=== PATIENT | female | born 1940 | race African-American/Black ===

== ENCOUNTER → 2016-12-30 | Outpatient (CLI) | payer MEDICARE ==
--- NOTE | 2016-12-30 13:09 | RADIOLOGY REPORT (SQ) ---
EXAM DESCRIPTION: CTA CHEST COMPLETED DATE/TIME: 12/30/2016 12:55 pm REASON FOR STUDY: PLEURISY R09.1 PLEURISY COMPARISON: CT chest 12/27/2007 TECHNIQUE: CT scan of the chest performed using helical scanning technique with dynamic intravenous contrast injection. Images reviewed with lung, soft tissue and bone windows. Reconstructed coronal and sagittal MPR images reviewed. Additional 3 dimensional post-processing performed to develop Maximal Intensity Projection images (IL P). All images stored on PACS. All CT scanners at this facility use dose modulation, iterative reconstruction, and/or weight based d osing when appropriate to reduce radiation dose to as low as reasonably achievable (ALARA). [facility]: Dose Right [facility]: CareDose [facility]: Dose Right [facility]: Teradose 4D [facility]: EnterMedia CONTRAST TYPE AND DOSE: contrast/concentration: Isovue 370.00 mg/ml; Total Contrast Delivered: 74.0 ml; Total Saline Delivered: 110.0 ml RENAL FUNCTION: Creatinine 0.9 RADIATION DOSE: Up-to-date CT equipment and radiation dose reduction techniques were employed. CTDIv ol: 9.4 - 15.5 mGy. DLP: 562 mGy-cm. . LIMITATIONS: None. FINDINGS: LUNGS AND PLEURA: No masses, infiltrates, pneumothorax. No pleural effusions, calcificati ons. AORTA AND GREAT VESSELS: No aneurysm or dissection. HEART: No pericardial effusion. PULMONARY ARTERIES: No emboli visualized in the main pulmonary arteries or the segmental branches. HILAR AND MEDIASTINAL STRUCTURES: No identified masses or abnormal nodes. HARDWARE: None in the chest. UPPER ABDOMEN: No significant findings. Limited exam. THYROID AND OTHER SOFT TISSUES: No masses. No adenopathy. BONES: No acute or significant finding. 3D MIPS: Confirm above findings. OTHER: No other significant finding. IMPRESSION: NORMAL CTA OF THE CHEST. NO PULMONARY EMBOLI. TECHNICAL DOCUMENTATION: JOB ID: [id number] Quality ID # [id number]: Final reports with documentation of one or more dose reduction techniques (e.g., Au tomated exposure control, adjustment of the mA and/or kV according to patient size, use of iterative reconstruction technique) 2010 [employer]- All Rights Reserved
== END ==
LOC: RAD 11:42
PROVIDERS: ATTEND Internal Medicine
DX: R09.1 Pleurisy (principal)
CPT/HCPCS: 71275; 82565

== ENCOUNTER → 2017-08-12 | Outpatient (CLI) | payer MEDICARE ==
--- NOTE | 2017-08-13 08:04 | WOMENS IMAGING REPORT ---
EXAM DESCRIPTION: 3D SCREENING MAMMO BILAT COMPLETED DATE/TIME: 08/12/2017 1:18 pm REASON FOR STUDY: ROUTINE SCREENING; Z12.31 Z12.31 ENCNTR SCREEN MAMMOGRAM FOR MALIGNANT NEOPLASM O F KAUSHAL COMPARISON: Multiple since 2009 TECHNIQUE: Standard craniocaudal and mediolateral oblique views of each breast recorded using digita l acquisition and breast tomosynthesis. LIMITATIONS: None. FINDINGS: No masses, calcifications or architectural distortion. No areas of suspicion. Read with the assistance of CAD. .[facility] - R2 Cenova Version 1.3 .[facility] - R2 Cenova Version 1.3 .[facility] - R2 Cenova Version 2.4 .[facility] [place] - R2 Cenova Version 2.4 .[facility] - R2 [employer] Upholsterer Version 9.2 IMPRESSION: NORMAL MAMMOGRAM. BIRADS 1. BREAST DENSITY: a. The breasts are almost entirely fatty. BIRAD: 1 NEGATIVE RECOMMENDATION: ROUTINE SCREENING Continue yearly bilateral screening tomosynthesis in August 2018 COMMENT: The patient has been notified of the results by letter per SA requirements. Additional no tification policies are in place for contacting patient with suspicious or incomplete findings. Quality ID #225: The [employer] recommends an annual screening mammogram for women aged 40 years or over. This facility utilizes a reminder system to ensure that all patients receive reminder letters, and/or direct phone calls for appointments. This includes reminders for routine scr eening mammograms, diagnostic mammograms, or other Breast Imaging Interventions when appropriate. Th is patient will be placed in the appropriate reminder system. The [employer] (ACR) has developed recommendations for screening MRI of the breast s in certain patient populations, to be used in conjunction with mammography. Breast MRI surveillanc e may be appropriate for women with more than 20% lifetime risk of developing breast cancer as deter mined by genetic testing, significant family history of the disease, or history of mantle radiation f or Hodgkins Disease. ACR Practice Guidelines 2008. DBT Technology DBT is a type of tomographic mammography. With conventional mammography, overlapping breast tissue ma y make lesions difficult to detect, even with good compression. DBT uses an x-ray tube that rotates a round the breast, taking images at different angles. These images are then combined to create thin sl ices of the breast that the radiologist can view as a 3D reconstruction. The W[employer] unit can perform full-field digital mammograms (2D imaging); or DBT (3D imaging); or both, in a combination mode that quickly performs both the mammogram and the tomosynthesis scan while the breast is still compressed. PQRS 6045F: Fluoroscopic imaging is not utilized for breast tomosynthesis. TECHNICAL DOCUMENTATION: FINDING NUMBER: (1) ASSESSMENT: (1) JOB ID: [id number] [employer]- All Rights Reserved
== END ==
LOC: WI 13:00
PROVIDERS: ATTEND Internal Medicine
DX: Z12.31 Encounter for screening mammogram for malignant neoplasm of breast (principal)
CPT/HCPCS: 77063; 77067

== ENCOUNTER → 2018-03-09 | Outpatient (CLI) | payer MEDICARE ==
--- NOTE | 2018-03-09 08:32 | RADIOLOGY REPORT (SQ) ---
EXAM DESCRIPTION: FOOT LEFT 2 VIEWS COMPLETED DATE/TIME: 03/09/2018 8:14 am REASON FOR STUDY: LEFT FOOT PAIN COMPARISON: None. NUMBER OF VIEWS: Two views. TECHNIQUE: AP and lateral without weight bearing radiographic images acquired of the left foot. LIMITATIONS: None. FINDINGS: MINERALIZATION: Normal. BONES: No acute fracture or dislocation. No worrisome bone lesions. No significant osteophytes. JOINTS: No erosions. No africa-articular osteopenia. No chondrocalcinosis. SOFT TISSUES: No swelling. No calcifications. OTHER: No other significant finding. IMPRESSION: NEGATIVE STUDY OF THE LEFT FOOT. NO EXPLANATION FOR PAIN. TECHNICAL DOCUMENTATION: JOB ID: [id number] [employer]- All Rights Reserved Reading location - IP/workstation name: [email or web address]
== END ==
LOC: RAD 07:56
PROVIDERS: ATTEND Internal Medicine
DX: M79.675 Pain in left toe(s) (principal)

== ENCOUNTER → 2018-05-25 | Outpatient (CLI) | payer MEDICARE ==
--- NOTE | 2018-05-25 12:07 | RADIOLOGY REPORT (SQ) ---
EXAM DESCRIPTION: KNEE LEFT 2 VIEWS COMPLETED DATE/TIME: 05/25/2018 11:04 am REASON FOR STUDY: PAIN IN LT KNEE M25.562 PAIN IN LEFT KNEE twisted COMPARISON: 07/08/2010 NUMBER OF VIEWS: Two views. TECHNIQUE: AP and lateral radiographic images acquired of the left knee. LIMITATIONS: None. FINDINGS: MINERALIZATION: Normal. BONES: No acute fracture. Diffuse degenerative changes in 3 compartments. JOINT: No effusion. Chondrocalcinosis. SOFT TISSUES: No soft tissue swelling. No radio-opaque foreign body. OTHER: No other significant finding. IMPRESSION: Osteoarthritis. No acute fracture. TECHNICAL DOCUMENTATION: JOB ID: [id number] [employer]- All Rights Reserved Reading location - IP/workstation name: [email or web address]
== END ==
LOC: OD 09:41
PROVIDERS: ATTEND Internal Medicine
DX: M25.562 Pain in left knee (principal)

== ENCOUNTER → 2019-06-20 | Outpatient (CLI) | payer MEDICARE ==
--- NOTE | 2019-06-20 10:43 | WOMENS IMAGING REPORT ---
EXAM DESCRIPTION: 3D SCREENING MAMMO BILAT COMPLETED DATE/TIME: 06/20/2019 8:17 am REASON FOR STUDY: Z12.31 SCREENING MAMMO Z12.31 ENCNTR SCREEN MAMMOGRAM FOR MALIGNANT NEOPLASM OF B RE COMPARISON: [id number] EXAM PARAMETERS: Standard craniocaudal and mediolateral oblique views of each breast recorded using digital acquisition and breast tomosynthesis. Read with the assistance of CAD. .[facility] - [email or web address] Side Gluer Version 9.2 LIMITATIONS: None. FINDINGS: Findings present which are benign by mammographic criteria. No suspicious masses, calcific ations or architectural distortion. Pertinent benign findings: Right intramammary lymph node. Benign mammographic findings may include one or more of the following: Smooth masses, popcorn/rim/coa rse calcifications, asymmetries, post-procedure changes, and lesions with long-standing stability. IMPRESSION: BENIGN MAMMOGRAPHIC FINDINGS. BIRADS 2 BREAST DENSITY: b. There are scattered areas of fibroglandular density. BIRAD: ASSESSMENT: 2 BENIGN FINDING(S) RECOMMENDATION: ROUTINE SCREENING COMMENT: The patient has been notified of the results by letter per SA requirements. Additional no tification policies are in place for contacting patient with suspicious or incomplete findings. Quality ID #225: The [employer] recommends an annual screening mammogram for women aged 40 years or over. This facility utilizes a reminder system to ensure that all patients receive reminder letters, and/or direct phone calls for appointments. This includes reminders for routine scr eening mammograms, diagnostic mammograms, or other Breast Imaging Interventions when appropriate. Th is patient will be placed in the appropriate reminder system. TECHNICAL DOCUMENTATION: FINDING NUMBER: (1) ASSESSMENT: (1) JOB ID: [id number] 1961 [employer]- All Rights Reserved Reading location - IP/workstation name: [email or web address]
== END ==
LOC: WI 07:50
PROVIDERS: ATTEND Internal Medicine
DX: Z12.31 Encounter for screening mammogram for malignant neoplasm of breast (principal)
CPT/HCPCS: 77063; 77067

== ENCOUNTER 2019-08-17 13:45 | Inpatient (IN) | payer MEDICARE ==
--- NOTE | 2019-08-17 14:49 | ER Document Report ---
ED Medical Screen (RME) - General Chief Complaint: Rib Pain Stated Complaint: RIGHT RIB PAIN, BACK PAIN Time Seen by Provider: 08/17/19 14:42 Primary Care Provider: VALDEMAR RODRIGUEZ MD [Primary Care Provider] - Follow up as needed Notes: Patient is a 79-year-old female with a history of type 2 diabetes, hypertension who presents emergency department with a chief complaint of right-sided chest pain and right flank pain. Patient reports that she had an outpatient CTA of her chest this morning and was told that if it was positive for a pulmonary embolus that she should come to the emergency department. She reports this was ordered by her primary care physician Dr. Rodriguez. Patient reports that her symptoms really did start this morning which included right chest wall pain and right flank pain. Patient reports is worse when she attempts to take a deep breath. Patient denies use of blood thinners currently. Patient denies a history of blood clot. TRAVEL OUTSIDE OF THE [place] IN LAST 30 DAYS: No - Related Data Allergies/Adverse Reactions: Penicillins Allergy (Verified 08/17/19 14:46) Past Medical History - Past Medical History Cardiac Medical History: Reports: Hx Hypercholesterolemia, Hx Hypertension Endocrine Medical History: Reports: Hx Diabetes Mellitus Type 2 Past Surgical History: Reports: Hx Hysterectomy, Hx Orthopedic Surgery - R shoulder; c6-c7 surgery - Immunizations Hx Diphtheria, Pertussis, Tetanus Vaccination: Yes Physical Exam - Vital signs Vitals: Temp Pulse Resp BP Pulse Ox 99.6 F 83 16 126/56 H 97 08/17/19 13:53 08/17/19 13:53 08/17/19 13:53 08/17/19 13:53 08/17/19 13:53 - Respiratory Respiratory status: No respiratory distress Chest status: Nontender Breath sounds: Normal Chest palpation: Normal Course - Re-evaluation Re-evalutation: 08/17/19 14:47 Patient CTA results reveal a pulmonary embolus in the right upper and lower lobe. We will initiate blood work to include coagulation studies, cardiac monitoring and EKG. Patient in triage and currently in no acute distress. Patient's oxygen level is 98% on room air. Patient is not tachycardic or hypotensive. I have greeted and performed a rapid initial assessment of this patient. A comprehensive ED assessment and evaluation of the patient, analysis of test results and completion of the medical decision making process will be conducted by additional ED providers. - Vital Signs Vital signs: Temp Pulse Resp BP Pulse Ox 99.6 F 83 16 126/56 H 97 08/17/19 13:53 08/17/19 13:53 08/17/19 13:53 08/17/19 13:53 08/17/19 13:53 Doctor's Discharge - Discharge Referrals: VALDEMAR RODRIGUEZ MD [Primary Care Provider] - Follow up as needed
[2019-08-17 16:42] LABS: ABSOLUTE BASOPHILS # (AUTO) 0.1 10^3/uL (0.0-0.2); ABSOLUTE LYMPHOCYTES (AUTO) 2.7 10^3/uL (0.5-4.7); ABSOLUTE MONOCYTES (AUTO) 0.7 10^3/uL (0.1-1.4); ABSOLUTE NEUT (AUTO) 7.9 10^3/uL (1.7-8.2); BASOPHILS % (AUTO) 0.5 % (0-2); EOSINOPHILS % (AUTO) 0.3 % (0-6); HEMATOCRIT 39.9 % (36.0-47.0); HEMOGLOBIN 13.2 g/dL (12.0-15.5); LYMPHOCYTES % (AUTO) 23.7 % (13-45); MEAN CORPUSCULAR HEMOGLOBIN 29.8 pg (27.0-33.4); MEAN CORPUSCULAR VOLUME 90 fl (80-97); MONOCYTES % (AUTO) 6.2 % (3-13); PLATELET COUNT 348 10^3/uL (150-450); RED BLOOD COUNT 4.42 10^6/uL (3.72-5.28); RED CELL DISTRIBUTION WIDTH 13.9 % (11.5-14.0); SEGMENTED NEUTROPHILS % (AUTO) 69.3 % (42-78); TOTAL CELLS COUNTED % (AUTO) 100 %; WHITE BLOOD COUNT 11.4 10^3/uL (4.0-10.5)
[2019-08-17] MEDS ORDERED: HEPARIN SOD (PORCINE) 1,000 UNIT/ML 10 ML VIAL IV ONE (18:10)
--- NOTE | 2019-08-17 18:33 | ER Document Report ---
ED Respiratory Problem - General Chief Complaint: Breathing Difficulty Stated Complaint: RIGHT RIB PAIN, BACK PAIN Time Seen by Provider: 08/17/19 14:42 Notes: Patient is a pleasant 79-year-old female who comes in complaining of right-sided chest pain. Patient states that she was told to come to the emergency department based on her CTA results. Patient saw her primary care doctor who sent her for CTA of her chest as the patient was complaining of increased dyspnea on exertion and right-sided pain, concerning for pleurisy. Patient stat es that the pain is worse when she is walking around or breathing faster. It is especially bad when she is yawning. Denies any history of heart failure or COPD. No chest pain at rest currently. Denies fever or cough. No other symptoms at this time TRAVEL OUTSIDE OF THE [place] IN LAST 30 DAYS: No - HPI Patient complains to provider of: Hurts to breath Onset: Last week Duration: Worse/persistent Quality of pain: Achy, Dull Severity: Mild Pain Level: 1 - Related Data Allergies/Adverse Reactions: Penicillins Allergy (Verified 08/17/19 14:46) Past Medical History - Social History Smoking Status: Never Smoker Chew tobacco use (# tins/day): No Frequency of alcohol use: None Drug Abuse: None Family History: Reviewed & Not Pertinent Patient has suicidal ideation: No Patient has homicidal ideation: No - Past Medical History Cardiac Medical History: Reports: Hx Hypercholesterolemia, Hx Hypertension Endocrine Medical History: Reports: Hx Diabetes Mellitus Type 2 Past Surgical History: Reports: Hx Hysterectomy, Hx Orthopedic Surgery - R shoulder; c6-c7 surgery - Immunizations Hx Diphtheria, Pertussis, Tetanus Vaccination: Yes Hx Pneumococcal Vaccination: 05/03/14 Review of Systems - Review of Systems -: Yes All other systems reviewed and negative Physical Exam - Vital signs Vitals: Temp Pulse Resp BP Pulse Ox 99.6 F 83 16 126/56 H 97 08/17/19 13:53 08/17/19 13:53 08/17/19 13:53 08/17/19 13:53 08/17/19 13:53 Interpretation: Normal - General General appearance: Appears well, Alert - HEENT Head: Normocephalic, Atraumatic Eyes: Normal Pupils: PERRL - Respiratory Respiratory status: No respiratory distress Chest status: Nontender Breath sounds: Normal Chest palpation: Normal - Cardiovascular Rhythm: Regular Heart sounds: Normal auscultation Murmur: No - Abdominal Inspection: Normal Distension: No distension Bowel sounds: Normal Tenderness: Nontender Organomegaly: No organomegaly - Back Back: Normal, Nontender - Extremities General upper extremity: Normal inspection, Nontender, Normal color, Normal ROM, Normal temperature General lower extremity: Normal inspection, Nontender, Normal color, Normal ROM, Normal temperature, Normal weight bearing. No: Ovi's sign - Neurological Neuro grossly intact: Yes Cognition: Normal Orientation: AAOx4 [place] Coma Scale Eye Opening: Spontaneous [place] Coma Scale Verbal: Oriented [place] Coma Scale Motor: Obeys Commands [place] Coma Scale Total: 15 Speech: Normal Motor strength normal: LUE, RUE, LLE, RLE Sensory: Normal - Psychological Associated symptoms: Normal affect, Normal mood - Skin Skin Temperature: Warm Skin Moisture: Dry Skin Color: Normal Course - Re-evaluation Re-evalutation: 08/17/19 18:30 Patient discussed with her primary care doctor who would like her started on a heparin drip and admitted to the [facility]. Patient denies any history of bleeding. No dark tarry or bloody stools. No nausea or vomiting. When patient sits up her oxygen saturation drops to 93%. She becomes more dyspneic. - Vital Signs Vital signs: Temp Pulse Resp BP Pulse Ox 99.6 F 83 19 134/78 H 98 08/17/19 13:53 08/17/19 13:53 08/17/19 18:15 08/17/19 18:15 08/17/19 18:15 - Laboratory Result Diagrams: 08/17/19 16:14 08/17/19 19:25 Laboratory results interpreted by me: 08/17/19 16:14 WBC 11.4 H - Diagnostic Test Radiology reviewed: Reports reviewed - EKG Interpretation by Ks EKG shows normal: Sinus rhythm Rate: Normal Rhythm: NSR When compared to previous EKG there are: Other - no ST changes Discharge - Discharge Clinical Impression: Pulmonary embolism on right Disposition: ADMITTED INPATIENT Admitting Provider: [facility] Unit Admitted: [facility]
--- NOTE | 2019-08-17 19:34 | EKG REPORT ---
SEVERITY:- ABNORMAL ECG - SINUS RHYTHM LEFT VENTRICULAR HYPERTROPHY NONSPECIFIC T ABNORMALITIES, INFERIOR LEADS : Confirmed by: Vania De Souza MD 17-Aug-2019 19:34:37
[2019-08-17] MEDS: HEPARIN SODIUM,PORCINE/D5W 25,000 UNIT/250 ML RTUINJ IV PRN (19:35)
[2019-08-17 19:56] LABS: INTERNATIONAL RATION (INR) 1.02; PROTHROMBIN TIME 13.4 SEC (11.4-15.4)
[2019-08-17 19:57] LABS: PARTIAL THROMBOPLASTIN TIME 29.4 SEC (23.5-35.8)
[2019-08-17 20:11] LABS: ALKALINE PHOSPHATASE 127 U/L (38-126); ANION GAP 11 (5-19); ASPARTATE AMINO TRANSFERASE 17 U/L (14-36); BILIRUBIN,DIRECT 0.4 mg/dL (0.0-0.4); BLOOD UREA NITROGEN 14 mg/dL (7-20); CALCIUM 11.2 mg/dL (8.4-10.2); CARBON DIOXIDE 28 mmol/L (22-30); CHLORIDE 100 mmol/L (98-107); GLUCOSE 102 mg/dL (75-110); TOTAL PROTEIN 7.9 g/dL (6.3-8.2)
[2019-08-17] MEDS ORDERED: ZOLPIDEM TARTRATE 5 MG TABLET PO PRN (20:21)
[2019-08-17] MEDS ORDERED: DEXTROSE 50%-WATER 25 GM/50 ML DISP.SYRIN IV PRN ×2 (20:28)
[2019-08-17] MEDS ORDERED: DEXTROSE 40% GEL 15 GM TUBE PO PRN ×2 (20:28)
[2019-08-17] MEDS ORDERED: GLUCAGON,HUMAN RECOMB 1 MG INJ IM PRN (20:28)
[2019-08-17] MEDS ORDERED: (PENDING PHARMACY ID) (Losartan/Hydrochlorothiazide [Hyzaar 50-12.5 Tablet] 1 EACH) PO SCH (20:30)
[2019-08-17] MEDS ORDERED: OLMESARTAN MEDOXOMIL 40 MG PO SCH (20:30)
--- NOTE | 2019-08-17 20:35 | PDOC H&P ---
History of Present Illness Admission Date/PCP: 08/17/19 18:51 VALDEMAR RODRIGUEZ MD History of Present Illness: DUANE ALANIS is a 79 year old female, She has a history of type 2 diabetes mellitus, she came to the office today as a walk-in patient for evaluation of right-sided chest pain, the chest pain is pleuritic in nature aggravated by movement, reproducible on palpation of the chest wall. The chest pain is of 1 day duration, I was particularly concerned about the nature of the chest pain and the acuity of the pain and I suspected pulmonary embolism, I requested for outpatient CT angiogram of the chest, this demonstrated pulmonary embolism involving the right lung. Unfortunately there was no bed available for patient to be admitted directly to the hospital, she was redirected to the emergency room now she been admitted to [facility] bed for management. Past Medical History Cardiac Medical History: Reports: Hyperlipidema, Hypertension Endocrine Medical History: Reports: Diabetes Mellitus Type 2 Musculoskeltal Medical History: Reports: Arthritis Past Surgical History Past Surgical History: Reports: Hysterectomy, Orthopedic Surgery - R shoulder; c6-c7 surgery Social History Smoking Status: Never Smoker Electronic Cigarette use?: No Family History Family History: Reviewed & Not Pertinent Parental Family History Reviewed: Yes Children Family History Reviewed: Yes Sibling(s) Family History Reviewed.: Yes Medication/Allergy Home Medications: Metformin HCl [Glucophage] 500 mg PO DAILY 05/05/14 Olmesartan Medoxomil 40 mg PO DAILY 08/17/19 Aspirin [Ecotrin 81 mg EC Tablet] 81 mg PO DAILY 08/18/19 Hydrochlorothiazide [Hydrodiuril 25 mg Tablet] 25 mg PO QAM 08/18/19 Pravastatin Sodium 10 mg PO DAILY 08/18/19 Allergies/Adverse Reactions: Penicillins Allergy (Verified 08/17/19 14:46) Review of Systems Constitutional: ABSENT: chills, fever(s), headache(s), weight gain, weight loss Eyes: ABSENT: visual disturbances Ears: ABSENT: hearing changes Cardiovascular: PRESENT: chest pain, dyspnea on exertion. ABSENT: edema, orthropnea, palpitations Respiratory: PRESENT: dyspnea. ABSENT: cough, hemoptysis Gastrointestinal: ABSENT: abdominal pain, constipation, diarrhea, hematemesis, hematochezia, nausea, vomiting Genitourinary: ABSENT: dysuria, hematuria Musculoskeletal: ABSENT: joint swelling Integumentary: ABSENT: rash, wounds Neurological: ABSENT: abnormal gait, abnormal speech, confusion, dizziness, foc al weakness, syncope Psychiatric: ABSENT: anxiety, depression, homidical ideation, suicidal ideation Endocrine: ABSENT: cold intolerance, heat intolerance, menstrual abnormalities, polydipsia, polyuria Hematologic/Lymphatic: ABSENT: easy bleeding, easy bruising, lymphadenopathy Physical Exam Vital Signs: Temp Pulse Resp BP Pulse Ox 99.6 F 83 19 134/78 H 98 08/17/19 13:53 08/17/19 13:53 08/17/19 18:15 08/17/19 18:15 08/17/19 18:15 Intake & Output 08/16/19 08/17/19 08/18/19 06:59 06:59 06:59 Weight 100.6 kg General appearance: PRESENT: no acute distress, well-developed, well-nourished Head exam: PRESENT: atraumatic, normocephalic Eye exam: PRESENT: conjunctiva pink, EOMI, PERRLA. ABSENT: scleral icterus Ear exam: PRESENT: normal external ear exam Mouth exam: PRESENT: moist, tongue midline Neck exam: PRESENT: full ROM Respiratory exam: PRESENT: clear to auscultation eufemia Cardiovascular exam: PRESENT: RRR, +S1, +S2 Pulses: PRESENT: normal dorsalis pedis pul, +2 pedal pulses bilateral Vascular exam: PRESENT: normal capillary refill GI/Abdominal exam: PRESENT: normal bowel sounds, soft Rectal exam: PRESENT: deferred Neurological exam: PRESENT: alert, CN II-XII grossly intact Psychiatric exam: PRESENT: appropriate affect, normal mood Skin exam: PRESENT: dry, intact, warm. ABSENT: cyanosis, rash Results Laboratory Results: 08/17/19 16:14 08/17/19 19:25 08/17/19 08/17/19 16:14 19:25 WBC 11.4 H RBC 4.42 Hgb 13.2 Hct 39.9 MCV 90 MCH 29.8 MCHC 33.0 RDW 13.9 Plt Count 348 Seg Neutrophils % 69.3 Sodium 138.7 Potassium 4.0 Chloride 100 Carbon Dioxide 28 Anion Gap 11 BUN 14 Creatinine 0.91 Est GFR ( Amer) > 60 Glucose 102 Calcium 11.2 H Total Bilirubin 1.0 AST 17 Alkaline Phosphatase 127 H Total Protein 7.9 Albumin 4.0 08/17/19 19:25 Troponin I < 0.012 Assessment & Plan - Diagnosis (1) Pulmonary embolism on right Is this a current diagnosis for this admission?: Yes Plan: She has unprovoked pulmonary embolism she will need a lifelong coagulation, because of the burden of the blood clots she will be admitted into the hospital for IV heparin therapy for 3 days and subsequently transition to p.o. Eliquis. Venous Doppler of the legs to be ordered (2) T2DM (type 2 diabetes mellitus) Qualifiers: Diabetes mellitus nursing home insulin use: without nursing home use Diabetes mellitus complication status: without complication Qualified Code(s): E11.9 - Type 2 diabetes mellitus without complications Is this a current diagnosis for this admission?: Yes
[2019-08-17] MEDS ORDERED: LOSARTAN POTASSIUM 50 MG TABLET PO SCH (21:00)
[2019-08-17 22:02] LABS: ABSOLUTE BASOPHILS # (AUTO) 0.1 10^3/uL (0.0-0.2); ABSOLUTE EOSINOPHILS # (AUTO) 0.1 10^3/uL (0.0-0.6); ABSOLUTE LYMPHOCYTES (AUTO) 4.1 10^3/uL (0.5-4.7); ABSOLUTE MONOCYTES (AUTO) 0.8 10^3/uL (0.1-1.4); ABSOLUTE NEUT (AUTO) 6.2 10^3/uL (1.7-8.2); BASOPHILS % (AUTO) 0.8 % (0-2); EOSINOPHILS % (AUTO) 0.5 % (0-6); HEMATOCRIT 36.1 % (36.0-47.0); HEMOGLOBIN 12.1 g/dL (12.0-15.5); LYMPHOCYTES % (AUTO) 36.8 % (13-45); MEAN CORPUSCULAR HEMOGLOBIN 29.9 pg (27.0-33.4); MEAN CORPUSCULAR HGB CONC 33.5 g/dL (32.0-36.0); MEAN CORPUSCULAR VOLUME 89 fl (80-97); PLATELET COUNT 318 10^3/uL (150-450); RED BLOOD COUNT 4.05 10^6/uL (3.72-5.28); RED CELL DISTRIBUTION WIDTH 13.6 % (11.5-14.0); SEGMENTED NEUTROPHILS % (AUTO) 54.9 % (42-78); TOTAL CELLS COUNTED % (AUTO) 100 %; WHITE BLOOD COUNT 11.3 10^3/uL (4.0-10.5)
[2019-08-17 22:12] LABS: AMYLASE 49 U/L (30-110); ANION GAP 11 (5-19); BLOOD UREA NITROGEN 14 mg/dL (7-20); CALCIUM 11.2 mg/dL (8.4-10.2); CARBON DIOXIDE 29 mmol/L (22-30); CHLORIDE 99 mmol/L (98-107); GLUCOSE 108 mg/dL (75-110); PHOSPHORUS 3.4 mg/dL (2.5-4.5); POTASSIUM 3.8 mmol/L (3.6-5.0)
[2019-08-17 22:17] LABS: CREATINE KINASE MB 0.25 ng/mL (<4.55)
[2019-08-17 22:21] LABS: TROPONIN I < 0.012 ng/mL
[2019-08-17 22:29] LABS: FREE T4 (FREE THYROXINE) 1.24 ng/dL (0.78-2.19)
[2019-08-17] MEDS: LOSARTAN POTASSIUM 50 MG TABLET PO SCH (22:33)
[2019-08-17] MEDS: METFORMIN HCL 500 MG TABLET PO SCH (22:33)
[2019-08-17] MEDS: INSULIN LISPRO 100 UNIT/ML 3 ML VIAL SUBCUT SCH (22:35)
[2019-08-17 22:43] LABS: THYROID STIMULATING HORMONE 1.36 uIU/mL (0.47-4.68)
[2019-08-17] MEDS: HYDROCHLOROTHIAZIDE 12.5 MG TABLET PO SCH (22:43)
[2019-08-17 23:25] LABS: INTERNATIONAL RATION (INR) 1.15; PROTHROMBIN TIME 14.8 SEC (11.4-15.4)
[2019-08-18 00:06] LABS: PARTIAL THROMBOPLASTIN TIME > 235.0 SEC (23.5-35.8)
[2019-08-18 01:01] LABS: APPEARANCE,URINE CLEAR; BILIRUBIN,URINE NEGATIVE (NEGATIVE); COLOR,URINE YELLOW; GLUCOSE, URINE NEGATIVE (NEGATIVE); KETONES,URINE TRACE mg/dL (NEGATIVE); LEUKOCYTE ESTERASE,URINE NEGATIVE (NEGATIVE); NITRITE,URINE NEGATIVE (NEGATIVE); PROTEIN,URINE NEGATIVE (NEGATIVE); URINE SPECIFIC GRAVITY 1.035
[2019-08-18 01:45] LABS: URINE AMPHETAMINES SCREEN NEGATIVE; URINE BARBITURATES SCREEN NEGATIVE; URINE BENZODIAZEPINES SCREEN NEGATIVE; URINE COCAINE SCREEN NEGATIVE; URINE MARIJUANA (THC) SCREEN NEGATIVE; URINE METHADONE SCREEN NEGATIVE; URINE PHENCYCLIDINE SCREEN NEGATIVE
[2019-08-18 03:11] LABS: HEMATOCRIT 34.8 % (36.0-47.0); HEMOGLOBIN 11.9 g/dL (12.0-15.5); MEAN CORPUSCULAR HEMOGLOBIN 30.3 pg (27.0-33.4); MEAN CORPUSCULAR HGB CONC 34.2 g/dL (32.0-36.0); MEAN CORPUSCULAR VOLUME 89 fl (80-97); PLATELET COUNT 281 10^3/uL (150-450); RED BLOOD COUNT 3.93 10^6/uL (3.72-5.28); RED CELL DISTRIBUTION WIDTH 13.5 % (11.5-14.0); WHITE BLOOD COUNT 9.8 10^3/uL (4.0-10.5)
[2019-08-18 03:28] LABS: ALBUMIN 3.9 g/dL (3.5-5.0); ALKALINE PHOSPHATASE 120 U/L (38-126); ASPARTATE AMINO TRANSFERASE 18 U/L (14-36); BILIRUBIN,DIRECT 0.2 mg/dL (0.0-0.4); TOTAL PROTEIN 7.6 g/dL (6.3-8.2); TRIGLYCERIDES 102 mg/dL (<150)
[2019-08-18 03:40] LABS: CREATINE KINASE MB 0.26 ng/mL (<4.55); DIRECT LDL 67 mg/dL (<100); TROPONIN I < 0.012 ng/mL
[2019-08-18] MEDS ORDERED: NORMAL SALINE 1000 ML 1,000 ML IV ONE (06:35)
[2019-08-18 09:23] LABS: CREATINE KINASE MB 0.27 ng/mL (<4.55)
[2019-08-18 09:28] LABS: TROPONIN I < 0.012 ng/mL
[2019-08-18] MEDS: INSULIN LISPRO 100 UNIT/ML 3 ML VIAL SUBCUT SCH ×4 (09:43→21:51)
[2019-08-18] MEDS ORDERED: HYDROCHLOROTHIAZIDE 25 MG TABLET PO SCH (10:00)
[2019-08-18] MEDS: METFORMIN HCL 500 MG TABLET PO SCH (10:37)
[2019-08-18] MEDS: LOSARTAN POTASSIUM 50 MG TABLET PO SCH (10:42)
[2019-08-18] MEDS: HYDROCHLOROTHIAZIDE 12.5 MG TABLET PO SCH (10:42)
--- NOTE | 2019-08-18 12:05 | XCELERA REPORT ---
[address] [facility] [address] Lower Extremity Venous Evaluation Procedure: Color flow and duplex imaging bilaterally of the veins of the lower extremities as well as the Common Femoral veins. Right Sided Venous Evaluation Normal vessel filling wall to wall, compression and augmentation as well as Colour flow down to the infrageniculate veins. Left Sided Venous Evaluation Normal vessel filling wall to wall, compression and augmentation as well as Colour flow down to the infrageniculate veins. Interpretation Summary No duplex evidence of DVT or obstruction in the bilateral lower extremities. Name: DUANE ALANIS Age: 79 yrs Gender: Female : 1940 Patient Status: Inpatient Patient Location: [place] [id number]^A Study Date: 08/17/2019 09:03 PM Reason For Study: PE Ordering Physician: VALDEMAR RODRIGUEZ Performed By: Shruthi Jacobson : VALDEMAR RODRIGUEZ > Juan Carlos Spear
[2019-08-18] MEDS: HEPARIN SODIUM,PORCINE/D5W 25,000 UNIT/250 ML RTUINJ IV PRN (16:13)
[2019-08-18 16:45] LABS: APPEARANCE,URINE SLIGHTLY-CLOUDY; BILIRUBIN,URINE NEGATIVE (NEGATIVE); COLOR,URINE YELLOW; GLUCOSE, URINE NEGATIVE (NEGATIVE); KETONES,URINE NEGATIVE (NEGATIVE); LEUKOCYTE ESTERASE,URINE MODERATE (NEGATIVE); NITRITE,URINE NEGATIVE (NEGATIVE); PROTEIN,URINE NEGATIVE (NEGATIVE); URINE SPECIFIC GRAVITY 1.015
--- NOTE | 2019-08-18 20:23 | PDOC PROGRESS REPORT ---
Subjective Progress Note for:: 08/18/19 Subjective:: Patient was admitted yesterday when she presented with unprovoked pulmonary embolism. She was seen by the bedside with family in the room, I explained the diagnosis and the plan of care to the patient and to her family with her consent. The blood pressure is somewhat low there is no sign or evidence of any blood loss ,intravenous normal saline was started Reason For Visit: RIGHT LUNG PUMONARY EMBOLISM H/O T2DM Physical Exam Vital Signs: Temp Pulse Resp BP Pulse Ox 98.4 F 65 16 97/61 L 100 08/18/19 18:35 08/18/19 18:35 08/18/19 18:35 08/18/19 18:35 08/18/19 18:35 Intake & Output 08/17/19 08/18/19 08/19/19 06:59 06:59 06:59 Intake Total 55 1195 Balance 55 1195 Weight 100.6 kg 93.1 kg General appearance: PRESENT: no acute distress, well-developed, well-nourished Head exam: PRESENT: atraumatic, normocephalic Eye exam: PRESENT: conjunctiva pink, EOMI, PERRLA Ear exam: PRESENT: normal external ear exam Mouth exam: PRESENT: moist, tongue midline Neck exam: PRESENT: full ROM Respiratory exam: PRESENT: clear to auscultation eufemia Cardiovascular exam: PRESENT: RRR, +S1, +S2 Pulses: PRESENT: normal dorsalis pedis pul, +2 pedal pulses bilateral Vascular exam: PRESENT: normal capillary refill GI/Abdominal exam: PRESENT: normal bowel sounds, soft Rectal exam: PRESENT: deferred Neurological exam: PRESENT: alert, CN II-XII grossly intact Psychiatric exam: PRESENT: appropriate affect, normal mood Skin exam: PRESENT: dry, intact, warm Results Laboratory Results: 08/18/19 03:03 08/17/19 21:31 08/17/19 08/17/19 08/17/19 21:31 21:31 21:31 WBC RBC Hgb Hct MCV MCH MCHC RDW Plt Count Seg Neutrophils % Sodium 138.7 Potassium 3.8 Chloride 99 Carbon Dioxide 29 Anion Gap 11 BUN 14 Creatinine 0.88 Est GFR ( Amer) > 60 Glucose 108 Calcium 11.2 H Phosphorus 3.4 Magnesium 1.8 Total Bilirubin AST Alkaline Phosphatase Ammonia < 8.7 L Total Protein Albumin Triglycerides Cholesterol LDL Cholesterol Direct VLDL Cholesterol HDL Cholesterol Amylase 49 Lipase 178.6 TSH 1.36 Free T4 1.24 Urine Color Urine Appearance Urine pH Ur Specific [place] Urine Protein Urine Glucose (UA) Urine Ketones Urine Blood Urine Nitrite Ur Leukocyte Esterase Urine WBC (Auto) Urine RBC (Auto) 08/17/19 08/18/19 08/18/19 21:31 00:42 03:03 WBC 11.3 H 9.8 RBC 4.05 3.93 Hgb 12.1 11.9 L Hct 36.1 34.8 L MCV 89 89 MCH 29.9 30.3 MCHC 33.5 34.2 RDW 13.6 13.5 Plt Count 318 281 Seg Neutrophils % 54.9 Sodium Potassium Chloride Carbon Dioxide Anion Gap BUN Creatinine Est GFR ( Amer) Glucose Calcium Phosphorus Magnesium Total Bilirubin AST Alkaline Phosphatase Ammonia Total Protein Albumin Triglycerides Cholesterol LDL Cholesterol Direct VLDL Cholesterol HDL Cholesterol Amylase Lipase TSH Free T4 Urine Color YELLOW Urine Appearance CLEAR Urine pH 6.0 Ur Specific [place] 1.035 Urine Protein NEGATIVE Urine Glucose (UA) NEGATIVE Urine Ketones TRACE H Urine Blood SMALL H Urine Nitrite NEGATIVE Ur Leukocyte Esterase NEGATIVE Urine WBC (Auto) 3 Urine RBC (Auto) 13 08/18/19 08/18/19 03:03 16:15 WBC RBC Hgb Hct MCV MCH MCHC RDW Plt Count Seg Neutrophils % Sodium Potassium Chloride Carbon Dioxide Anion Gap BUN Creatinine Est GFR ( Amer) Glucose Calcium Phosphorus Magnesium Total Bilirubin 1.0 AST 18 Alkaline Phosphatase 120 Ammonia Total Protein 7.6 Albumin 3.9 Triglycerides 102 Cholesterol 160.70 LDL Cholesterol Direct 67 VLDL Cholesterol 20.0 HDL Cholesterol 52 Amylase Lipase TSH Free T4 Urine Color YELLOW Urine Appearance SLIGHTLY-CLOUDY Urine pH 6.0 Ur Specific [place] 1.015 Urine Protein NEGATIVE Urine Glucose (UA) NEGATIVE Urine Ketones NEGATIVE Urine Blood SMALL H Urine Nitrite NEGATIVE Ur Leukocyte Esterase MODERATE H Urine WBC (Auto) 10 Urine RBC (Auto) 7 08/17/19 08/17/19 08/17/19 19:25 21:31 21:31 Creatine Kinase 31 CK-MB (CK-2) Troponin I < 0.012 NT-Pro-B Natriuret Pep 35 08/17/19 08/18/19 08/18/19 21:31 03:03 03:03 Creatine Kinase 29 L CK-MB (CK-2) 0.25 0.26 Troponin I < 0.012 < 0.012 NT-Pro-B Natriuret Pep 08/18/19 08/18/19 08:33 08:33 Creatine Kinase 41 CK-MB (CK-2) 0.27 Troponin I < 0.012 NT-Pro-B Natriuret Pep Assessment & Plan - Diagnosis (1) Pulmonary embolism on right Is this a current diagnosis for this admission?: Yes Plan: Patient will continue intravenous heparin for few more days (2) T2DM (type 2 diabetes mellitus) Qualifiers: Diabetes mellitus group home insulin use: without group home use Diabetes mellitus complication status: without complication Qualified Code(s): E11.9 - Type 2 diabetes mellitus without complications Is this a current diagnosis for this admission?: Yes - Time Time Spent with patient: 35 or more minutes Level of Care: IMCU Medications reviewed and adjusted accordingly: Yes
[2019-08-18] MEDS ORDERED: (PENDING PHARMACY ID) (Pravastatin Sodium [Pravastatin Sodium] 10 MG) PO SCH (20:30)
[2019-08-19 05:50] LABS: ABSOLUTE EOSINOPHILS # (AUTO) 0.1 10^3/uL (0.0-0.6); ABSOLUTE LYMPHOCYTES (AUTO) 3.3 10^3/uL (0.5-4.7); ABSOLUTE MONOCYTES (AUTO) 0.5 10^3/uL (0.1-1.4); ABSOLUTE NEUT (AUTO) 3.5 10^3/uL (1.7-8.2); BASOPHILS % (AUTO) 0.3 % (0-2); EOSINOPHILS % (AUTO) 0.8 % (0-6); HEMATOCRIT 33.8 % (36.0-47.0); HEMOGLOBIN 11.5 g/dL (12.0-15.5); LYMPHOCYTES % (AUTO) 44.3 % (13-45); MEAN CORPUSCULAR HEMOGLOBIN 30.1 pg (27.0-33.4); MEAN CORPUSCULAR HGB CONC 33.9 g/dL (32.0-36.0); MEAN CORPUSCULAR VOLUME 89 fl (80-97); MONOCYTES % (AUTO) 7.3 % (3-13); PLATELET COUNT 332 10^3/uL (150-450); RED BLOOD COUNT 3.81 10^6/uL (3.72-5.28); RED CELL DISTRIBUTION WIDTH 13.4 % (11.5-14.0); SEGMENTED NEUTROPHILS % (AUTO) 47.3 % (42-78); TOTAL CELLS COUNTED % (AUTO) 100 %; WHITE BLOOD COUNT 7.4 10^3/uL (4.0-10.5)
[2019-08-19 06:38] LABS: ALBUMIN 3.4 g/dL (3.5-5.0); ALKALINE PHOSPHATASE 116 U/L (38-126); ASPARTATE AMINO TRANSFERASE 16 U/L (14-36); BILIRUBIN,DIRECT 0.2 mg/dL (0.0-0.4); BILIRUBIN,TOTAL 0.7 mg/dL (0.2-1.3)
[2019-08-19] MEDS: INSULIN LISPRO 100 UNIT/ML 3 ML VIAL SUBCUT SCH ×4 (08:33→21:39)
[2019-08-19] MEDS: METFORMIN HCL 500 MG TABLET PO SCH (09:31)
[2019-08-19] MEDS: HYDROCHLOROTHIAZIDE 12.5 MG TABLET PO SCH (10:10)
[2019-08-19] MEDS: LOSARTAN POTASSIUM 50 MG TABLET PO SCH (10:10)
[2019-08-19] MEDS: HEPARIN SODIUM,PORCINE/D5W 25,000 UNIT/250 ML RTUINJ IV PRN (16:58)
--- NOTE | 2019-08-19 19:26 | PDOC PROGRESS REPORT ---
Subjective Progress Note for:: 08/19/19 Subjective:: Patient seen by the bedside, she has less pleurisy on IV heparin, Hopefully we will transition to p.o. anticoagulant Eliquis tomorrow Reason For Visit: RIGHT LUNG PUMONARY EMBOLISM H/O T2DM Physical Exam Vital Signs: Temp Pulse Resp BP Pulse Ox 98.7 F 70 16 102/50 L 95 08/19/19 15:46 08/19/19 15:46 08/19/19 15:46 08/19/19 15:46 08/19/19 15:46 Intake & Output 08/18/19 08/19/19 08/20/19 06:59 06:59 06:59 Intake Total 55 1371 764 Balance 55 1371 764 Weight 100.6 kg 94.4 kg 94.4 kg General appearance: PRESENT: no acute distress Eye exam: PRESENT: PERRLA Respiratory exam: PRESENT: clear to auscultation eufemia Cardiovascular exam: PRESENT: +S1, +S2 GI/Abdominal exam: PRESENT: soft Neurological exam: PRESENT: alert, CN II-XII grossly intact Results Laboratory Results: 08/19/19 05:15 08/17/19 21:31 08/19/19 08/19/19 05:15 05:15 WBC 7.4 RBC 3.81 Hgb 11.5 L Hct 33.8 L MCV 89 MCH 30.1 MCHC 33.9 RDW 13.4 Plt Count 332 Seg Neutrophils % 47.3 Total Bilirubin 0.7 AST 16 Alkaline Phosphatase 116 Total Protein 7.0 Albumin 3.4 L 08/17/19 08/17/19 08/17/19 19:25 21:31 21:31 Creatine Kinase 31 CK-MB (CK-2) Troponin I < 0.012 NT-Pro-B Natriuret Pep 35 08/17/19 08/18/19 08/18/19 21:31 03:03 03:03 Creatine Kinase 29 L CK-MB (CK-2) 0.25 0.26 Troponin I < 0.012 < 0.012 NT-Pro-B Natriuret Pep 08/18/19 08/18/19 08:33 08:33 Creatine Kinase 41 CK-MB (CK-2) 0.27 Troponin I < 0.012 NT-Pro-B Natriuret Pep Assessment & Plan - Diagnosis (1) Pulmonary embolism on right Is this a current diagnosis for this admission?: Yes Plan: Continue IV heparin (2) T2DM (type 2 diabetes mellitus) Qualifiers: Diabetes mellitus longterm insulin 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
[2019-08-20 06:25] LABS: ABSOLUTE BASOPHILS # (AUTO) 0.1 10^3/uL (0.0-0.2); ABSOLUTE EOSINOPHILS # (AUTO) 0.1 10^3/uL (0.0-0.6); ABSOLUTE LYMPHOCYTES (AUTO) 2.3 10^3/uL (0.5-4.7); ABSOLUTE MONOCYTES (AUTO) 0.5 10^3/uL (0.1-1.4); ABSOLUTE NEUT (AUTO) 3.1 10^3/uL (1.7-8.2); EOSINOPHILS % (AUTO) 2.1 % (0-6); HEMATOCRIT 32.8 % (36.0-47.0); HEMOGLOBIN 11.2 g/dL (12.0-15.5); LYMPHOCYTES % (AUTO) 37.1 % (13-45); MEAN CORPUSCULAR HGB CONC 34.3 g/dL (32.0-36.0); MEAN CORPUSCULAR VOLUME 88 fl (80-97); MONOCYTES % (AUTO) 8.6 % (3-13); PLATELET COUNT 339 10^3/uL (150-450); RED BLOOD COUNT 3.75 10^6/uL (3.72-5.28); RED CELL DISTRIBUTION WIDTH 13.6 % (11.5-14.0); SEGMENTED NEUTROPHILS % (AUTO) 51.2 % (42-78); TOTAL CELLS COUNTED % (AUTO) 100 %; WHITE BLOOD COUNT 6.1 10^3/uL (4.0-10.5)
[2019-08-20 06:45] LABS: ALBUMIN 3.3 g/dL (3.5-5.0); ALKALINE PHOSPHATASE 111 U/L (38-126); ASPARTATE AMINO TRANSFERASE 14 U/L (14-36); BILIRUBIN,TOTAL 0.6 mg/dL (0.2-1.3); TOTAL PROTEIN 6.5 g/dL (6.3-8.2)
[2019-08-20] MEDS: INSULIN LISPRO 100 UNIT/ML 3 ML VIAL SUBCUT SCH ×2 (08:46→12:41)
[2019-08-20] MEDS: LOSARTAN POTASSIUM 50 MG TABLET PO SCH (09:22)
[2019-08-20] MEDS: HYDROCHLOROTHIAZIDE 12.5 MG TABLET PO SCH (09:22)
[2019-08-20] MEDS: METFORMIN HCL 500 MG TABLET PO SCH (11:07)
--- NOTE | 2019-08-20 12:17 | PDOC DISCHARGE SUMMARY ---
Impression - Admit/DC Date/PCP Admission Date/Primary Care Provider: 08/17/19 18:51 VALDEMAR RODRIGUEZ MD Discharge Date: 08/20/19 - Discharge Diagnosis (1) Pulmonary embolism on right Is this a current diagnosis for this admission?: Yes (2) T2DM (type 2 diabetes mellitus) Is this a current diagnosis for this admission?: Yes - Additional Information Resuscitation Status: Full Code Referrals: VALDEMAR RODRIGUEZ MD [Primary Care Provider] - Follow up as needed Prescriptions: Apixaban [Eliquis 5 mg Tablet] 5 mg PO BID #180 tablet Home Medications: Metformin HCl [Glucophage] 500 mg PO DAILY 05/05/14 Olmesartan Medoxomil 40 mg PO DAILY 08/17/19 Aspirin [Ecotrin 81 mg EC Tablet] 81 mg PO DAILY 08/18/19 Hydrochlorothiazide [Hydrodiuril 25 mg Tablet] 25 mg PO QAM 08/18/19 Pravastatin Sodium 10 mg PO DAILY 08/18/19 Apixaban [Eliquis 5 mg Tablet] 5 mg PO BID #180 tablet 08/20/19 History of Present Illiness History of Present Illness: DUANE ALANIS is a 79 year old female, She has a history of type 2 diabetes mellitus, she came to the office today as a walk-in patient for evaluation of right-sided chest pain, the chest pain is pleuritic in nature aggravated by movement, reproducible on palpation of the chest wall. The chest pain is of 1 day duration, I was particularly concerned about the nature of the chest pain and the acuity of the pain and I suspected pulmonary embolism, I requested for outpatient CT angiogram of the chest, this demonstrated pulmonary embolism involving the right lung. Unfortunately there was no bed available for patient to be admitted directly to the hospital, she was redirected to the emergency room now she been admitted to [facility] bed for management. Hospital Course Hospital Course: Patient was admitted for the management of unprovoked pulmonary embolism affecting the right lung, she was treated with IV heparin, the anticoagulation is transition to p.o. Eliquis. She had unprovoked PE, there is no need to pu rsue work-up for thrombophilia because it would not cell changer. She also had venous Doppler of the lower extremities, it was negative for PE. I explained to the patient that she will require lifelong anticoagulation Physical Exam Vital Signs: Temp Pulse Resp BP Pulse Ox 98.1 F 69 16 102/75 96 08/20/19 07:49 08/20/19 07:49 08/20/19 07:49 08/20/19 07:49 08/20/19 07:49 Intake & Output 08/19/19 08/20/19 08/21/19 06:59 06:59 06:59 Intake Total 1371 964 Balance 1371 964 Weight 94.4 kg 94.3 kg General appearance: PRESENT: no acute distress Eye exam: PRESENT: PERRLA Respiratory exam: PRESENT: clear to auscultation eufemia Cardiovascular exam: PRESENT: +S1, +S2 GI/Abdominal exam: PRESENT: soft Neurological exam: PRESENT: alert, CN II-XII grossly intact Results Laboratory Results: WBC 6.1 10^3/uL (4.0-10.5) 08/20/19 05:49 RBC 3.75 10^6/uL (3.72-5.28) 08/20/19 05:49 Hgb 11.2 g/dL (12.0-15.5) L 08/20/19 05:49 Hct 32.8 % (36.0-47.0) L 08/20/19 05:49 MCV 88 fl (80-97) 08/20/19 05:49 MCH 30.0 pg (27.0-33.4) 08/20/19 05:49 MCHC 34.3 g/dL (32.0-36.0) 08/20/19 05:49 RDW 13.6 % (11.5-14.0) 08/20/19 05:49 Plt Count 339 10^3/uL (150-450) 08/20/19 05:49 Lymph % (Auto) 37.1 % (13-45) 08/20/19 05:49 [place] % (Auto) 8.6 % (3-13) 08/20/19 05:49 Eos % (Auto) 2.1 % (0-6) 08/20/19 05:49 Baso % (Auto) 1.0 % (0-2) 08/20/19 05:49 Absolute Neuts (auto) 3.1 10^3/uL (1.7-8.2) 08/20/19 05:49 Absolute Lymphs (auto) 2.3 10^3/uL (0.5-4.7) 08/20/19 05:49 Absolute Monos (auto) 0.5 10^3/uL (0.1-1.4) 08/20/19 05:49 Absolute Eos (auto) 0.1 10^3/uL (0.0-0.6) 08/20/19 05:49 Absolute Basos (auto) 0.1 10^3/uL (0.0-0.2) 08/20/19 05:49 Seg Neutrophils % 51.2 % (42-78) 08/20/19 05:49 PT 14.8 SEC (11.4-15.4) 08/17/19 23:08 INR 1.15 08/17/19 23:08 INR (Anticoag Therapy) Cancelled 08/17/19 21:31 APTT 68.9 SEC (23.5-35.8) H 08/20/19 07:39 Sodium 138.7 mmol/L (137-145) 08/17/19 21:31 Potassium 3.8 mmol/L (3.6-5.0) 08/17/19 21:31 Chloride 99 mmol/L (98-107) 08/17/19 21:31 Carbon Dioxide 29 mmol/L (22-30) 08/17/19 21:31 Anion Gap 11 (5-19) 08/17/19 21:31 BUN 14 mg/dL (7-20) 08/17/19 21:31 Creatinine 0.88 mg/dL (0.52-1.25) 08/17/19 21:31 Est GFR ( Amer) > 60 (>60) 08/17/19 21:31 Est GFR (MDRD) Non-Af > 60 (>60) 08/17/19 21:31 Glucose 108 mg/dL (75-110) 08/17/19 21:31 POC Glucose 108 mg/dL (70-110) 08/20/19 07:50 Hemoglobin A1c % 5.4 % (4.7-6.0) 08/18/19 03:03 Calcium 11.2 mg/dL (8.4-10.2) H 08/17/19 21:31 Phosphorus 3.4 mg/dL (2.5-4.5) 08/17/19 21:31 Magnesium 1.8 mg/dL (1.6-2.3) 08/17/19 21:31 Total Bilirubin 0.6 mg/dL (0.2-1.3) 08/20/19 05:49 Direct Bilirubin 0.0 mg/dL (0.0-0.4) 08/20/19 05:49 Neonat Total Bilirubin Not Reportable 08/20/19 05:49 Neonat Direct Bilirubin Not Reportable 08/20/19 05:49 Neonat Indirect Bili Not Reportable 08/20/19 05:49 AST 14 U/L (14-36) 08/20/19 05:49 ALT 7 U/L (<35) 08/20/19 05:49 Alkaline Phosphatase 111 U/L (38-126) 08/20/19 05:49 Ammonia < 8.7 umol/L (9-33) L 08/17/19 21:31 Creatine Kinase 41 U/L (30-135) 08/18/19 08:33 CK-MB (CK-2) 0.27 ng/mL (<4.55) 08/18/19 08:33 Troponin I < 0.012 ng/mL 08/18/19 08:33 NT-Pro-B Natriuret Pep 35 pg/mL (<450) 08/17/19 21:31 Total Protein 6.5 g/dL (6.3-8.2) 08/20/19 05:49 Albumin 3.3 g/dL (3.5-5.0) L 08/20/19 05:49 Triglycerides 102 mg/dL (<150) 08/18/19 03:03 Cholesterol 160.70 mg/dL (0-200) 08/18/19 03:03 LDL Cholesterol Direct 67 mg/dL (<100) 08/18/19 03:03 VLDL Cholesterol 20.0 mg/dL (10-31) 08/18/19 03:03 HDL Cholesterol 52 mg/dL (>40) 08/18/19 03:03 Amylase 49 U/L (30-110) 08/17/19 21:31 Lipase 178.6 U/L (23-300) 08/17/19 21:31 TSH 1.36 uIU/mL (0.47-4.68) 08/17/19 21:31 Free T4 1.24 ng/dL (0.78-2.19) 08/17/19 21:31 Urine Color YELLOW 08/18/19 16:15 Urine Appearance SLIGHTLY-CLOUDY 08/18/19 16:15 Urine pH 6.0 (5.0-9.0) 08/18/19 16:15 Ur Specific Mark 1.015 08/18/19 16:15 Urine Protein NEGATIVE mg/dL (NEGATIVE) 08/18/19 16:15 Urine Glucose (UA) NEGATIVE mg/dL (NEGATIVE) 08/18/19 16:15 Urine Ketones NEGATIVE mg/dL (NEGATIVE) 08/18/19 16:15 Urine Blood SMALL (NEGATIVE) H 08/18/19 16:15 Urine Nitrite NEGATIVE (NEGATIVE) 08/18/19 16:15 Urine Bilirubin NEGATIVE (NEGATIVE) 08/18/19 16:15 Urine Urobilinogen 4.0 mg/dL (<2.0) H 08/18/19 16:15 Ur Leukocyte Esterase MODERATE (NEGATIVE) H 08/18/19 16:15 Urine WBC (Auto) 10 /HPF 08/18/19 16:15 Urine RBC (Auto) 7 /HPF 08/18/19 16:15 Urine Bacteria (Auto) TRACE /HPF 08/18/19 16:15 Squamous Epi Cells Auto 6 /HPF 08/18/19 16:15 Urine Mucus (Auto) RARE /LPF 08/18/19 16:15 Urine Ascorbic Acid NEGATIVE (NEGATIVE) 08/18/19 16:15 Urine Opiates Screen NEGATIVE 08/18/19 00:42 Urine Methadone Screen NEGATIVE 08/18/19 00:42 Ur Barbiturates Screen NEGATIVE 08/18/19 00:42 Ur Phencyclidine Scrn NEGATIVE 08/18/19 00:42 Ur Amphetamines Screen NEGATIVE 08/18/19 00:42 U Benzodiazepines Scrn NEGATIVE 08/18/19 00:42 Urine Cocaine Screen NEGATIVE 08/18/19 00:42 U Marijuana (THC) Screen NEGATIVE 08/18/19 00:42 08/17/19 08/17/19 08/17/19 19:25 21:31 21:31 CK-MB (CK-2) 0.25 Troponin I < 0.012 < 0.012 NT-Pro-B Natriuret Pep 35 08/18/19 08/18/19 03:03 08:33 CK-MB (CK-2) 0.26 0.27 Troponin I < 0.012 < 0.012 NT-Pro-B Natriuret Pep Stroke Is this a Stroke Patient?: No Acute Heart Failure - Is this a Heart Failure Patient?: No
[2019-08-20 12:26] VITALS: BP 97/61
== END 2019-08-20 13:35 | disposition home or self-care (01) | DRG 176 ==
LOC: ER 13:45 → EH 18:51 → 3S 08-18 17:50
PROVIDERS: ADMIT Internal Medicine; ATTEND Internal Medicine
DX: I26.99 Other pulmonary embolism without acute cor pulmonale (principal); E78.00 Pure hypercholesterolemia, unspecified; I10 Essential (primary) hypertension; E11.8 Type 2 diabetes mellitus with unspecified complications; Z79.84 Long term (current) use of oral hypoglycemic drugs; Z79.82 Long term (current) use of aspirin; Z79.899 Other long term (current) drug therapy
CPT/HCPCS: 36415; 71275; 80053; 80061; 80076; 80307; 81001; 82140; 82150; 82550; 82553; 82565; 82962; 83036; 83690; 83735; 83880; 84100; 84439; 84443; 84484; 85025; 85027; 85610; 85730; 87040; 87086; 93005; 93010; 93970; 99285; J1644; J7030

== ENCOUNTER → 2019-08-17 | Outpatient (CLI) | payer MEDICARE ==
--- NOTE | 2019-08-17 13:34 | RADIOLOGY REPORT (SQ) ---
EXAM DESCRIPTION: CTA CHEST COMPLETED DATE/TIME: 08/17/2019 1:04 pm REASON FOR STUDY: R09.1 PLEURISY R09.1 PLEURISY COMPARISON: CT angio chest 12/30/2016 TECHNIQUE: CT scan of the chest performed using helical scanning technique with dynamic intravenous contrast injection. Images reviewed with lung, soft tissue and bone windows. Reconstructed coronal and sagittal MPR images reviewed. Additional 3 dimensional post-processing performed to develop Maximal Intensity Projection images (ME P). All images stored on PACS. All CT scanners at this facility use dose modulation, iterative reconstruction, and/or weight based d osing when appropriate to reduce radiation dose to as low as reasonably achievable (ALARA). [facility]: Dose Right [facility]: CareDose [facility]: Dose Right [facility]: Teradose 4D [facility]: [employer] CONTRAST TYPE AND DOSE: contrast/concentration: Isovue 350.00 mg/ml; Total Contrast Delivered: 59.0 ml; Total Saline Delivered: 80.0 ml Contrast bolus adequate for pulmonary arteries and aorta. RENAL FUNCTION: Creatinine 1.0 RADIATION DOSE: CT Rad equipment meets quality standard of care and radiation dose reduction techniq ues were employed. CTDIvol: 11.3 - 15.6 mGy. DLP: 643 mGy-cm. . LIMITATIONS: None. FINDINGS: LUNGS AND PLEURA: No masses, infiltrates, or pneumothorax. No pleural effusions or pleura l calcifications. AORTA AND GREAT VESSELS: No aneurysm. No dissection. HEART: No pericardial effusion. No significant coronary artery calcifications. PULMONARY ARTERIES: Pulmonary emboli are present to the right upper lobe, and lateral and posterior b jonathan segments right lower lobe. This report was called to Dr Rodriguez 1315 hours 08/17/2019 HILAR AND MEDIASTINAL STRUCTURES: No identified masses or abnormal nodes. HARDWARE: None in the chest. UPPER ABDOMEN: No significant findings. Limited exam. THYROID AND OTHER SOFT TISSUES: No masses. No adenopathy. BONES: No acute or significant finding. 3D MIPS: Confirm above findings. OTHER: No other significant finding. IMPRESSION: Positive study for pulmonary emboli to the right upper lobe and right lower lobe. No focal infiltrates. No pleural effusion. COMMENT: Pertinent positive or negative findings of the imaging study reported as a CRITICAL EXAM cody RODRIGUEZ MD at13:18 on 08/17/2019. Category of Critical Exam: Acute pulmonary embolus Quality ID # 436: Final reports with documentation of one or more dose reduction techniques (e.g., Au tomated exposure control, adjustment of the mA and/or kV according to patient size, use of iterative reconstruction technique) TECHNICAL DOCUMENTATION: JOB ID: [id number] [employer]- All Rights Reserved Reading location - IP/workstation name: [email or web address] [email or web address]
== END ==
LOC: RAD 12:20
PROVIDERS: ATTEND Internal Medicine
DX: R09.1 Pleurisy (principal)
CPT/HCPCS: 71275; 82565

== ENCOUNTER → 2019-12-21 | Outpatient (CLI) | payer MEDICARE ==
--- NOTE | 2019-12-21 14:54 | RADIOLOGY REPORT (SQ) ---
EXAM DESCRIPTION: NM PARATHYROID IMAGING IMAGES COMPLETED DATE/TIME: 12/21/2019 2:16 pm REASON FOR STUDY: HYPERPARATHYROIDISM (E21.0) E21.0 PRIMARY HYPERPARATHYROIDISM COMPARISON: CT chest 08/17/2019 RADIONUCLIDE AND DOSE: 22 millicuries Tc-99m Sestamibi. The route of agent administration: Intravenous ADDITIONAL DRUGS AND DOSES: None. TECHNIQUE: Early and delayed images of the neck acquired following radionuclide administration. LIMITATIONS: None. FINDINGS: Immediate images demonstrate normal distribution of sestamibi of the submandibular glands and thyroid gland. They have 3 hour delayed images demonstrate a persistent focus of increased uptake along the left low er pole thyroid/left sternoclavicular joint region. This could represent a small parathyroid or thyr oid adenoma IMPRESSION: Study is positive for ectopic activity on 3 hour delayed imaging over the left lower ofelia e thyroid/thoracic inlet region TECHNICAL DOCUMENTATION: JOB ID: [id number] 2010 [employer]- All Rights Reserved Reading location - IP/workstation name: [email or web address]
== END ==
LOC: RAD 10:18
PROVIDERS: ATTEND Internal Medicine
DX: E21.0 Primary hyperparathyroidism (principal); D35.1 Benign neoplasm of parathyroid gland
CPT/HCPCS: 78070; A9500; Q9969

== ENCOUNTER → 2019-12-22 | Outpatient (CLI) | payer MEDICARE ==
--- NOTE | 2019-12-22 09:48 | WOMENS IMAGING REPORT ---
EXAM DESCRIPTION: BONE DENSITY HIP/SPINE IMAGES COMPLETED DATE/TIME: 12/22/2019 9:36 am REASON FOR STUDY: E21.0 BONE DENSITY E21.0 PRIMARY HYPERPARATHYROIDISM COMPARISON: 03/27/2015. TECHNIQUE: Dual-Energy X-ray Absorptiometry (DEXA) of the AP Spine and Hip. LIMITATIONS: None. FINDINGS: LUMBAR SPINE: The bone mineral density (BMD) measured from L1-L4 in the AP projection correlates with a T-score of 2.6, which is normal as defined by the World Health Organization. BMD Change vs Baseline: 0.1%. HIP: The bone mineral density (BMD) measured in the right hip correlates with a T-score of 0.1, which is n ormal as defined by the World Health Organization. BMD Change vs Baseline: N/A 10 year Fracture Risk Assessment: Major Osteoporotic Fracture: Not available. Hip Fracture: Not available. IMPRESSION: 1. LUMBAR SPINE WHO CLASSIFICATION: NORMAL. 2. HIP WHO CLASSIFICATION: NORMAL. OVERALL ASSESSMENT: WHO CLASSIFICATION: NORMAL. COMMENT: The World Health Organization defines low BMD as follows: T-score: Normal: At or above -1.0 Osteopenia: Between -1.0 and -2.5 Osteoporosis: At or below -2.5 without fractures Established osteoporosis: At or below -2.5 with fractures In general, you may wish to consider: Diagnosis Treatment Follow-up DEXA Normal BMD Prevention 2-3 years Osteopenia Prevention/Therapy 1-2 years Osteoporosis Therapy Yearly TECHNICAL DOCUMENTATION: JOB ID: [id number] 2010 [employer]- All Rights Reserved Reading location - IP/workstation name: [email or web address]
== END ==
LOC: WI 09:05
PROVIDERS: ATTEND Internal Medicine
DX: E21.0 Primary hyperparathyroidism (principal)
CPT/HCPCS: 77080

== ENCOUNTER → 2020-03-04 | Outpatient (CLI) | payer MEDICARE | LOC: OD 14:49 | PROVIDERS: ATTEND Surgery | DX: E21.3 Hyperparathyroidism, unspecified (principal) | CPT/HCPCS: 36415; 82306; 82310; 83970 ==

== ENCOUNTER 2020-05-01 05:28 | Observation (INO) | payer MEDICARE ==
[2020-04-26 11:35] LABS: HEMATOCRIT 36.7 % (36.0-47.0); HEMOGLOBIN 12.2 g/dL (12.0-15.5); MEAN CORPUSCULAR HEMOGLOBIN 30.5 pg (27.0-33.4); MEAN CORPUSCULAR HGB CONC 33.2 g/dL (32.0-36.0); MEAN CORPUSCULAR VOLUME 92 fl (80-97); PLATELET COUNT 305 10^3/uL (150-450); RED BLOOD COUNT 3.99 10^6/uL (3.72-5.28); RED CELL DISTRIBUTION WIDTH 14.4 % (11.5-14.0); WHITE BLOOD COUNT 5.8 10^3/uL (4.0-10.5)
[2020-04-26 12:38] LABS: ANION GAP 14 (5-19); BLOOD UREA NITROGEN 19 mg/dL (7-20); CALCIUM 11.8 mg/dL (8.4-10.2); CARBON DIOXIDE 21 mmol/L (22-30); CHLORIDE 104 mmol/L (98-107); GLUCOSE 94 mg/dL (75-110); POTASSIUM 4.7 mmol/L (3.6-5.0)
[~2020-05-01 05:28] MED LIST: CLINDAMYCIN 600 MG/D5W RTU 600 MG/50 ML RTUPB IV ONE; CLINDAMYCIN 600 MG/D5W RTU 600 MG/50 ML RTUPB IV PRN; LACTATED RINGERS 1000 ML IV PRN; LIDOCAINE 0.5% INJ-PF (5 MG/ML) 50 ML SDV SUBCUT PRN
[2020-05-01 06:35] LABS: INTERNATIONAL RATION (INR) 1.03; PROTHROMBIN TIME 13.7 SEC (11.4-15.4)
[2020-05-01 06:36] LABS: PARTIAL THROMBOPLASTIN TIME 33.2 SEC (23.5-35.8)
[2020-05-01 06:38] LABS: POTASSIUM 3.7 mmol/L (3.6-5.0)
[2020-05-01] MEDS ORDERED: FENTANYL CITRATE INJ/PF 100 MCG/2 ML AMPUL ONE (06:52)
[2020-05-01] MEDS ORDERED: HYDROMORPHONE HCL INJ/PF 2 MG/ML AMPULE ONE (06:52)
[2020-05-01] MEDS ORDERED: MIDAZOLAM 2 MG/2 ML INJ ONE (06:52)
[2020-05-01] MEDS ORDERED: PROPOFOL INJ 200 MG/20 ML VIAL IV ONE (06:53)
[2020-05-01] MEDS ORDERED: DEXAMETHASONE SOD PHOSPHATE INJ 4 MG/1 ML VIAL ONE ×2 (06:54→10:20)
[2020-05-01] MEDS ORDERED: ONDANSETRON HCL INJ/PF 4 MG/2 ML SDV ONE ×2 (06:54→10:20)
[2020-05-01] MEDS ORDERED: MICROFIBRILLAR COLLAGEN 1 GM PACK ONE (07:06)
[2020-05-01] MEDS ORDERED: LIDOCAINE 2% INJ (20 MG/ML) 20 ML MDV ONE (07:06)
[2020-05-01] MEDS ORDERED: BUPIVACAINE HCL 0.25 % INJ/PF (2.5 MG/1 ML) 30 ML VIAL ONE (08:00)
[2020-05-01] MEDS ORDERED: FENTANYL CITRATE INJ/PF 100 MCG/2 ML AMPUL IV PRN ×3 (08:01)
[2020-05-01] MEDS ORDERED: ONDANSETRON HCL INJ/PF 4 MG/2 ML SDV IV PRN (08:01)
[2020-05-01] MEDS ORDERED: DIPHENHYDRAMINE HCL 50 MG/ML VIAL IV PRN (08:01)
[2020-05-01] MEDS ORDERED: OXYCODONE-ACETAMINOPHEN 5-325 MG TABLET PO PRN ×3 (08:01→09:14)
[2020-05-01] MEDS ORDERED: MORPHINE SULFATE 10 MG/ML INJ IV PRN (08:01)
[2020-05-01] MEDS ORDERED: MEPERIDINE HCL/PF INJ 25 MG/1 ML DISP.SYRIN IV PRN (08:01)
[2020-05-01] MEDS ORDERED: NORMAL SALINE 1000 ML 1,000 ML IV PRN (09:14)
[2020-05-01] MEDS ORDERED: IBUPROFEN 400 MG TABLET PO PRN (09:15)
--- NOTE | 2020-05-01 09:27 | Operative Report ---
Operative Report DATE OF SURGERY: 05/01/20 PREOPERATIVE DIAGNOSIS: 1. Hyperparathyroidism secondary to parathyroid adenom a. 2. Hypercalcemia. 3. History of pulmonary embolus POSTOPERATIVE DIAGNOSIS: Same OPERATION: 1. Cervical exploration. 2. Use of intraoperative ultrasonography. 3. left lower parathyroidectomy SURGEON: GUNNER RUSSO WEBSPHERE PORTAL ARCHITECT: ARSH RAMACHANDRAN ANESTHESIA: GA TISSUE REMOVED OR ALTERED: Parathyroid gland COMPLICATIONS: None ESTIMATED BLOOD LOSS: Scant INTRAOPERATIVE FINDINGS: See below PROCEDURE: Patient was taken from the preop holding area to the main operating room and general anesthesia was induced. She was placed in the semirecumbent position, with the neck extended. The neck was exposed, prepped and draped in sterile fashion and instrumentation set up for open cervical exploration. Surgical plan surgical timeout were conducted. Focused ultrasound of the neck confirmed the left lower neck mass just inferior and slightly lateral to the inferior left thyroid pole, and medial to the left carotid artery. The thyroid gland, previously scanned, revealed hypoechoic densities in the right lobe, low suspicion for malignancy. No further evaluation indicated. There were no other extrathyroidal masses noted. On the skin surface, the patient had a long diagonal left neck scar extending from the submandibular area towards the sternum. This is consistent with previous cervical line surgery. In order to adequately explore the neck, I felt that a standard transcervical incision would be appropriate. The skin was anesthetized 1% plain lidocaine. Approximately 5-1/2 to 6 cm long transcervical incision was made in midline, approximately 3 fingerbreadths above the sternal notch. Superior and inferior skin and platysma flaps were raised with electrocautery. One of the superficial. Jugular veins on the right side was oversewed with a 3-0 Vicryl suture, and clips. The sternohyoid and sterno thyroid muscles were divided midline. We elevated the strap muscles off of the left lobe of the thyroid gland, and just inferior to this was a fleshy, dark bartholomew to reddish mass consistent with a parathyroid adenoma. We repositioned our retractors, and optimize exposure to the anterior surface of the tumor. We carefully dissected the mass from the fibrotic sheath that it was sitting within. There was some scar tissue here possibly related to previous cervical surgery. Small venous and arterial branches from the inferior side of the thyroid lobe which secured with clips. The main pedicle supplying vasculature to the parathyroid tumor was clamped with a hemostat, and the tumor released from the pedicle with scissors. The pedicle was oversewed with 3-0 Vicryl suture. The mass had all clips removed from its surface and taken by Dr. Tarango to pathology, and reviewed with Dr. Gonzalez. It weighed in at approximately 900 mg, and frozen section showed hypercellularity of parathyroid cells consistent with parathyroid adenoma. We returned to the operative field check for any mechanical bleeding and there was none. Sponge and needle counts are correct. Avitene was placed in the recesses of the exploration cavity, and the more superficial layers of the neck. Strap muscles closed with 2-0 Vicryl, platysma with 3-0 Vicryl, skin with skin glue. Patient tolerated procedure well, extubated, taken recovery room stable condition. The physician anesthesiology physician assistant, Ms. Horn, provided assistance during this case by: Assisting with retracting tissue, instillation of local anesthesia and closure of skin incisions.
[2020-05-01] MEDS ORDERED: SUCCINYLCHOLINE CHLORIDE INJ 200 MG/10 ML VIAL ONE (10:20)
[2020-05-01] MEDS ORDERED: ROCURONIUM BROMIDE INJ 50 MG/5 ML VIAL IV ONE (10:20)
[2020-05-01] MEDS ORDERED: PHENYLEPHRINE HCL INJ/PF 10 MG/1 ML SDV ONE (10:20)
[2020-05-01] MEDS ORDERED: GLYCOPYRROLATE 1 MG/5 ML VIAL ONE (10:20)
[2020-05-01] MEDS ORDERED: ACETAMINOPHEN INJ/PF 1000 MG/100 ML SDV IV SCH (18:00)
[2020-05-01] MEDS: ACETAMINOPHEN 1,000 MG/100 ML RTUPB IV SCH ×2 (18:27→23:46)
[2020-05-01] MEDS ORDERED: LATANOPROST 0.005% OPH SOLN 2.5 ML OS SCH (22:00)
[2020-05-01] MEDS ORDERED: (PENDING PHARMACY ID) (Pravastatin Sodium [Pravastatin Sodium] 10 MG) PO SCH (22:00)
[2020-05-02] MEDS: ACETAMINOPHEN 1,000 MG/100 ML RTUPB IV SCH (05:46)
[2020-05-02] MEDS ORDERED: HYDROCHLOROTHIAZIDE 25 MG TABLET PO SCH (08:00)
[2020-05-02 08:24] VITALS: BP 115/53
--- NOTE | 2020-05-02 09:02 | PDOC DISCHARGE SUMMARY ---
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 She is brought to amatory surgery for neck exploration, and parathyroidectomy. The procedure was formed by Dr. Tarango on 05/01/2020. She tolerated the procedure well had no drain was admitted overnight for observation. She did well had no complications had excellent pain control, good vocal control, and tolerated diet. Preoperatively patient's calcium level was 11.4, PTH level 282. Postoperatively the calcium level normalized to 9.7 the day after surgery, and her PTH level came down to 33 then up to 57 by the time of discharge. Patient be discharged home to care of her family, follow-up Dr. Tarango in 1 week was checked prior to appointment. She will take Tylenol or Motrin as needed pain, and resume her preoperative medications. She will resume her Eliquis therapy on Wednesday, May 03. She will shower. Is been instructed on neck care. - Additional Information Discharge Diet: As Tolerated Discharge Activity: Activity As Tolerated, Balance Activity w/Rest Referrals: GUNNER TARANGO MD [ACTIVE STAFF] - 05/09/20 9:00 am () Home Medications: Metformin HCl [Glucophage] 500 mg PO DAILY 05/05/14 Olmesartan Medoxomil 40 mg PO DAILY 08/17/19 Hydrochlorothiazide [Hydrodiuril 25 mg Tablet] 25 mg PO QAM 08/18/19 Pravastatin Sodium 10 mg PO QHS 08/18/19 Apixaban [Eliquis 5 mg Tablet] 5 mg PO BID #180 tablet 08/20/19 Latanoprost [Xalatan 0.005% Oph Soln 2.5 ml] 1 drop OS QHS 05/01/20 History of Present Illiness History of Present Illness: DUANE ALANIS is a 79 year old female Physical Exam Vital Signs: Temp Pulse Resp BP Pulse Ox 97.9 F 62 14 115/53 L 100 05/02/20 08:33 05/02/20 08:27 05/02/20 08:27 05/02/20 08:27 05/02/20 08:27 Intake & Output 05/01/20 05/02/20 05/03/20 06:59 06:59 06:59 Intake Total 0 3526 1100 Output Total 210 Balance 0 3316 1100 Weight 93.89 kg 92.7 kg Results Laboratory Results: WBC 5.8 10^3/uL (4.0-10.5) 04/26/20 10:45 RBC 3.99 10^6/uL (3.72-5.28) 04/26/20 10:45 Hgb 12.2 g/dL (12.0-15.5) 04/26/20 10:45 Hct 36.7 % (36.0-47.0) 04/26/20 10:45 MCV 92 fl (80-97) 04/26/20 10:45 MCH 30.5 pg (27.0-33.4) 04/26/20 10:45 MCHC 33.2 g/dL (32.0-36.0) 04/26/20 10:45 RDW 14.4 % (11.5-14.0) H 04/26/20 10:45 Plt Count 305 10^3/uL (150-450) 04/26/20 10:45 PT 13.7 SEC (11.4-15.4) 05/01/20 06:14 INR 1.03 05/01/20 06:14 APTT 33.2 SEC (23.5-35.8) 05/01/20 06:14 Sodium 138.7 mmol/L (137-145) 04/26/20 10:45 Potassium 3.7 mmol/L (3.6-5.0) 05/01/20 06:14 Chloride 104 mmol/L (98-107) 04/26/20 10:45 Carbon Dioxide 21 mmol/L (22-30) L 04/26/20 10:45 Anion Gap 14 (5-19) 04/26/20 10:45 BUN 19 mg/dL (7-20) 04/26/20 10:45 Creatinine 1.02 mg/dL (0.52-1.25) 04/26/20 10:45 Est GFR ( Amer) > 60 (>60) 04/26/20 10:45 Est GFR (MDRD) Non-Af 52 (>60) L 04/26/20 10:45 Glucose 118 mg/dL (75-110) H 05/01/20 06:14 POC Glucose 113 mg/dL (70-110) H 05/01/20 09:26 Calcium 9.7 mg/dL (8.4-10.2) 05/02/20 04:37 PTH Intact 57.0 pg/mL (10.0-65.0) 05/02/20 04:37 COVID-19 Source See comment 04/26/20 10:50 COVID-19 (MARJORIE) Not Detected (Not Detect) 04/26/20 10:50
[2020-05-02] MEDS ORDERED: METFORMIN HCL 500 MG TABLET PO SCH (10:00)
[2020-05-02] MEDS ORDERED: OLMESARTAN MEDOXOMIL 40 MG PO SCH (10:00)
[2020-05-02] MEDS ORDERED: LOSARTAN POTASSIUM 50 MG TABLET PO SCH (10:00)
== END 2020-05-02 09:13 | disposition home or self-care (01) ==
LOC: OROUT 05:28 → 4N 09:14
PROVIDERS: ADMIT Surgery; ATTEND Surgery
DX: D35.1 Benign neoplasm of parathyroid gland (principal); E21.0 Primary hyperparathyroidism; I10 Essential (primary) hypertension; E11.9 Type 2 diabetes mellitus without complications; M41.9 Scoliosis, unspecified; Z79.01 Long term (current) use of anticoagulants; Z86.711 Personal history of pulmonary embolism; Z79.899 Other long term (current) drug therapy; Z79.84 Long term (current) use of oral hypoglycemic drugs; Z83.49 Family history of other endocrine, nutritional and metabolic diseases; Z03.818 Encounter for observation for suspected exposure to other biological agents ruled out
CPT/HCPCS: 36415 ×3; 82962; 82310 ×2; 82947; 84132; 85027; 85610; 85730; 80048; 83970 ×3; 88305 ×2; 00320; 60500; G0378 ×2; U0003; J2250; J3490 ×4; J1100; J1170; J2370; J0330; J2405; J7030; J2704; A9270; J0131 ×2; C9803; 320; 87635; J3010

== ENCOUNTER → 2020-05-08 | Outpatient (CLI) | payer MEDICARE | LOC: OD 08:11 | PROVIDERS: ATTEND Surgery | DX: E83.52 Hypercalcemia (principal); E21.0 Primary hyperparathyroidism | CPT/HCPCS: 36415; 82310; 83970 ==